=== PATIENT | male | born 1955 | race Caucasian/White ===

== ENCOUNTER 2017-07-11 14:49 | Emergency (ER) | payer BC ==
[~2017-07-11] VITALS: Ht 188 cm; Wt 85.0 kg
[2017-07-11 15:16] VITALS: BP 160/100; PULSE 86; RESP 18; TEMP 98.7; O2SAT 100
--- NOTE | 2017-07-11 17:15 | PD ---
HPI Chief Complaint: Eye Problems/Injury Time Seen by Provider: 16:49 Travel History International Travel<30 days: No Contact w/Intl Traveler<30days: No Traveled to known affect area: No History of Present Illness HPI 61-year-old male who wears glasses presents emergency department with reports of diplopia and difficulty focusing after reading on his cell phone for several hours this morning. Patient denies headache, dizziness, or other symptoms. He states it is like double vision, but now upon arrival and sitting in the waiting room his symptoms have improved. He denies any other neurological complaints. He states he is from [place] visiting, and called his mother helper at home who stated he should get checked out. Vision is noted to be 20/20. Patient denies pain. He has no known drug allergies. [facility] Social History Alcohol Use: Yes Tobacco Use: No Substance Use: No Allergies-Medications (Allergen,Severity, Reaction): Coded Allergies: No Known Allergies (Unverified , 07/11/17) Review of Systems Except as stated in HPI: all other systems reviewed are Neg General / Constitutional: No: Fever Eyes: Positive: Diploplia (Now resolved), Blurred Vision (Now resolved), No: Photophobia, Drainage, Redness, Foreign Body Sensation, Pain, Tearing, Blind Spots, Visual changes, Blindness HENT: No: Headaches, Vertigo, Lightheadedness, Sore Throat, Rhinitis, Rhinorrhea, Congestion, Nosebleed, Neck Stiffness, Neck Pain, Dental Difficulties, Earache Cardiovascular: No: Chest Pain or Discomfort, Palpitations, Irregular Rhythm, Tachycardia, Diaphoresis, Syncope, Dyspnea on exertion Respiratory: No: Cough, Shortness of Breath Gastrointestinal: No: Nausea, Vomiting, Diarrhea, Abdominal Pain Genitourinary: No: Dysuria Musculoskeletal: No: Pain Skin: No Rash Neurologic: No: Weakness Psychiatric: No: Depression Endocrine: No: Polydipsia Hematologic/Lymphatic: No: Easy Bruising Physical Exam Narrative GENERAL: Patient appears no acute distress. He is ambulatory to the room. SKIN: Warm and dry. Normal color. Normal turgor but no rash HEAD: Atraumatic. Normocephalic. Nontender per EYES: Pupils equal and round. No scleral icterus. No injection or drainage. Ocular motions are equal bilaterally without nystagmus. Pupillary reflections are equal bilaterally. Ophthalmoscopic exam is unremarkable. No visual field deficits by confrontation. ENT: No nasal bleeding or discharge. Mucous membranes pink and moist. Pharynx is clear. Airways patent. TMs are clear. NECK: Trachea midline. Supple nontender without bruit. CARDIOVASCULAR: Regular rate and rhythm. No murmurs gallops or rubs RESPIRATORY: No accessory muscle use. Clear to auscultation. Breath sounds equal bilaterally. GASTROINTESTINAL: Abdomen soft, non-tender, nondistended. Hepatic and splenic margins not palpable. MUSCULOSKELETAL: Extremities without clubbing, cyanosis, or edema. No obvious deformities. NEUROLOGICAL: Awake and alert. No obvious cranial nerve deficits. Motor grossly within normal limits. Five out of 5 muscle strength in the arms and legs. Normal speech. PSYCHIATRIC: Appropriate mood and affect; insight and judgment normal. Vision is 20/20 with glasses bilaterally. Data Data Last Documented VS Vital Signs Date Time Temp Pulse Resp B/P (MAP) Pulse Ox O2 Delivery O2 Flow Rate FiO2 07/11/17 15:16 98.7 86 18 160/100 (120) [address] Brain W/O Iv Contrast(Rout) (07/11/17 17:03) [facility] Medical Decision Making Medical Screen Exam Complete: Yes Emergency Medical Condition: Yes Differential Diagnosis Eyestrain. Diplopia. Blurred vision. Possible intracranial bleed or tumor. Narrative Course Patient is medically stable at time of exam. CT of the head is ordered without contrast. CT is negative for acute process per radiologist. Patient is felt to have a high strain, and is counseled not to read as much on his phone as opposed to other devices. Patient to return if symptoms recur or any other symptoms worsen Diagnosis Primary Impression: Eye strain, bilateral Patient Instructions: General Instructions Additional Instructions: CT is negative for acute process per radiologist. Patient is felt to have a high strain, and is counseled not to read as much on his phone as opposed to other devices. Patient to return if symptoms recur or any other symptoms worsen Med/Other Pt SpecificInfo: No Meds Exist/No RX given Disposition: 01 DISCHARGE HOME Condition: Stable Kane Cisse Jul 11, 2017 17:15
--- NOTE | 2017-07-11 17:35 | RADRPT ---
EXAM DATE/TIME: 07/11/2017 17:15 [facility] COMPARISON: No previous studies available for comparison. INDICATIONS : Blurred vision fron extended reading. RADIATION DOSE: 50.43 CTDIvol (mGy) MEDICAL HISTORY : None SURGICAL HISTORY : None. ENCOUNTER: Initial ACUITY: 1 day PAIN SCALE: 0/10 LOCATION: TECHNIQUE: Multiple contiguous axial images were obtained of the head. Using automated exposure control and adj ustment of the mA and/or kV according to patient size, radiation dose was kept as low as reasonably a chievable to obtain optimal diagnostic quality images. DICOM format image data is available electro nically for review and comparison. FINDINGS: CEREBRUM: The ventricles are normal for age. No evidence of midline shift, mass lesion, hemorrhage or acute in farction. No extra-axial fluid collections are seen. POSTERIOR FOSSA: The cerebellum and brainstem are intact. The 4th ventricle is midline. The cerebellopontine angle i s unremarkable. EXTRACRANIAL: The visualized portion of the orbits is intact. SKULL: The calvaria is intact. No evidence of skull fracture. CONCLUSION: 1. No acute intracranial abnormality is identified. Dank Roche MD on July 11, 2017 at 17:31 Board Certified Radiologist. This report was verified electronically.
== END 2017-07-11 18:41 | disposition home or self-care (01) ==
LOC: NED 14:49 → NEPD 18:41
DX: H53.19 Other subjective visual disturbances (principal)
CPT/HCPCS: 70450